=== PATIENT | male | born 1995 | race Caucasian/White ===

== ENCOUNTER 2018-01-05 12:21 | Emergency (ER) | payer OTHER ==
[2018-01-05 12:25] VITALS: TEMP 98.1; BMI 34.7
[2018-01-05] MEDS ORDERED: SODIUM CHLORIDE 0.9% 1000 ML INFUS.BAG IV ONE (13:02)
[2018-01-05] MEDS ORDERED: ONDANSETRON 4 MG/2 ML VIAL IVPUSH ONE (13:02)
--- NOTE | 2018-01-05 13:05 | PDOC ---
History of Present Illness - General Chief Complaint: Lightheaded Stated Complaint: DIZZINESS/NAUSEA Time Seen by Provider: 01/05/18 12:33 History Source: Patient Exam Limitations: No Limitations - History of Present Illness Initial Comments: 01/05/18 13:03 The patient is a 22M with no PMH who presents to the ER complaining of dizzines. The patient states that Tuesday evening (2 days ago) he began to experience a room spinning sensation that has been consistent and not gone away. The patient states that this sensation is associated with nausea but no vomiting, numbness, tingling, fever, chills, CP, SOB. He denies any family history of vertigo or sudden cardiac . The patient admits to tinnitis in his L ear and a "feeling of wind" in his R ear. Past History - Past Medical History Allergies/Adverse Reactions: Allergies Allergy/AdvReac Type Severity Reaction Status Date / Time No Known Allergies Allergy Verified 01/05/18 12:25 Home Medications: Ambulatory Orders Meclizine HCl [Antivert -] 25 mg PO QID #28 tablet 01/05/18 COPD: No - Suicide/Smoking/Psychosocial Hx Smoking History: Never smoked Information on smoking cessation initiated: No Hx Alcohol Use: No Drug/Substance Use Hx: No Substance Use Type: None Review of Systems - Review of Systems Able to Perform ROS?: Yes Comments:: 01/05/18 13:20 GENERAL/CONSTITUTIONAL: Positive for room spinning sensation. No fever or chills. No weakness. HEAD, EYES, EARS, NOSE AND THROAT: No change in vision. No ear pain or discharge. No sore throat. CARDIOVASCULAR: No chest pain, palpitations, or lightheadedness. RESPIRATORY: No cough, wheezing, shortness of breath, or hemoptysis. GASTROINTESTINAL: No nausea, vomiting, diarrhea, constipation, or abdominal pain. GENITOURINARY: No dysuria, frequency, hematuria, or change in urination. MUSCULOSKELETAL: No joint or muscle swelling or pain. No neck or back pain. SKIN: No rash or lesions. NEUROLOGIC: No headache, numbness, tingling, weakness, loss of consciousness, or change in strength/sensation. ENDOCRINE: No increased thirst. No abnormal weight change. HEMATOLOGIC/LYMPHATIC: No anemia, easy bleeding, or history of blood clots. ALLERGIC/IMMUNOLOGIC: No hives or skin allergy. Is the patient limited Kinyarwanda proficient: No *Physical Exam - Vital Signs Last Vital Signs Temp Pulse Resp BP Pulse Ox 98.1 F 88 18 148/77 98 01/05/18 12:23 01/05/18 12:23 01/05/18 12:23 01/05/18 12:23 01/05/18 12:23 - Physical Exam Comments: 01/05/18 13:20 GENERAL: Well developed, well nourished. Awake and alert. No acute distress. HEENT: Normocephalic, atraumatic. Hearing grossly normal. Moist mucous membranes. PERRLA, EOMI. No conjunctival pallor. Sclera are non-icteric. NECK: Supple. Full ROM. No JVD. CARDIOVASCULAR: Regular rate and rhythm. No murmurs, rubs, or gallops. PULMONARY: No evidence of respiratory distress. Lungs clear to auscultation bilaterally. No wheezing, rales or rhonchi. ABDOMINAL: Soft. Non-tender. Non-distended. No rebound or guarding. GENITOURINARY: No CVA tenderness bilaterally. MUSCULOSKELETAL: Normal range of motion at all joints. No bony deformities or tenderness. EXTREMITIES: No cyanosis. No clubbing. No edema. No calf tenderness. SKIN: Warm and dry. Normal capillary refill. No rashes. No jaundice. NEUROLOGICAL: Alert, awake, appropriate. Cranial nerves 2-12 intact. L persistent horizontal nystagmus. Normal speech. Gait is normal without ataxia. PSYCHIATRIC: Cooperative. Good eye contact. Appropriate mood and affect. ED Treatment Course - LABORATORY CBC & Chemistry Diagram: 01/05/18 13:20 01/05/18 13:20 Medical Decision Making - Medical Decision Making 01/05/18 13:23 The patient is a 22M with no PMH who presents with vertiginous dizziness. The dizziness is worsened with movement on PE. Will give fluid, zofran, and meclizine and reassess. 01/05/18 14:14 Pt states his nausea has subsided. Recently given meclizine, will reassess. 01/05/18 16:01 Pt states he feels better. Still feels the dizziness when he looks to his L. I have instructed the patient on the importance of f/u with PCP and ENT. *DC/Admit/Observation/Transfer Diagnosis at time of Disposition: Dizziness - Discharge Dispostion Disposition: HOME Condition at time of disposition: Stable Admit: No - Prescriptions Prescriptions: Meclizine HCl [Antivert -] 25 mg PO QID #28 tablet - Referrals Referrals: Holly Patino MD [Primary Care Provider] - Yasir Ochoa MD [Staff Physician] - - Patient Instructions Printed Discharge Instructions: DI for Vertigo Additional Instructions: Please return to the ER if you have any signs or symptoms of chest pain, shortness of breath, uncontrollable fever, chills, nausea, vomiting, numbness, tingling, or weakness in any part of your body, changes in vision, or slurred speech. Please follow up with your primary care physician, Dr. Patino, in 2-3 days. Please follow up with the Ear, Nose, and Throat doctor, Dr. Ochoa in 1-3 days. You can take Meclizine as prescribed and as needed for dizziness. Please return to the ER if symptoms persist, worsen, or new symptoms arise. - Post Discharge Activity
[2018-01-05] MEDS ORDERED: MECLIZINE HCL 25 MG TABLET (FP) PO ONE (13:09)
[2018-01-05] MEDS ORDERED: ONDANSETRON 4 MG/2 ML VIAL ONE (13:13)
--- NOTE | 2018-01-05 13:14 | PDOC ---
Attending Attestation - Resident Resident Name: Jean-PierrejoanndevinWiley - ED Attending Attestation I have performed the following: I have examined & evaluated the patient, The case was reviewed & discussed with the resident, I agree w/resident's findings & plan, Exceptions are as noted - HPI HPI: 01/05/18 13:15 22y M presents with complaint of 2 days of dizziness that is vertignios in nature, associated with nausea, tinnitus in L ear, vertigo seems worse with turning to the left. denies any f/cm neck pain,diplopia , dysarthria, numbness/tingling/weakness, vomiting. pts exam unremarkble normal finger to nose, rapid alternating movements strength symmetirc in upper/lower extermities normal nonataxic gait Will obtain blood work to rule her out anemia, metabolic derangements, will give meclizine and Zofran for symptomatically relief. Suspect peripheral vertigo - Medical Decision Making 01/05/18 16:31 The patient's blood work was reviewed it is unremarkable the patient is feeling improved. We'll discharge patient follow with PMD return precautions were discussed I discussed the physical exam findings, ancillary test results and final diagnoses with the patient. I answered all of the patient's questions. The patient was satisfied with the care received and felt comfortable with the discharge plan and treatment plan. The patient will call their primary care physician within 24 hours to arrange follow-up and will return to the Emergency Department with any new, persistent or worsening symptoms. Heart Score/ECG Review - ECG Impressions Comment:: 01/05/18 17:10 Twelve-lead EKG was performed and reviewed by me. There is normal sinus rhythm with a normal rate. rate of 76 The axis is normal. The intervals are normal. There is normal R wave progression There are no ST or T wave abnormalities. Impression: Normal twelve-lead EKG
[2018-01-05 13:53] LABS: BASO % 0.4 % (0-2.0); EOS % 0.4 % (0-4.5); HEMATOCRIT 44.9 % (35.4-49); HEMOGLOBIN 15.3 GM/dL (11.7-16.9); LYMPH % 16.9 % (8-40); MCH 29.8 pg (25.7-33.7); MEAN CELL VOLUME 87.5 fl (80-96); MONO % 5.3 % (3.8-10.2); PLATELET COUNT 193 K/MM3 (134-434); RBC 5.13 M/mm3 (4.00-5.60); RDW 12.9 % (11.9-15.9); WHITE BLOOD COUNT 7.6 K/mm3 (4.0-10.0)
[2018-01-05] MEDS ORDERED: MECLIZINE HCL 25 MG TABLET (FP) ONE (13:58)
[2018-01-05 14:18] LABS: ALBUMIN 4.2 g/dl (3.4-5.0); ANION GAP 8 (8-16); BLOOD UREA NITROGEN 18 mg/dL (7-18); CALCIUM 9.2 mg/dL (8.5-10.1); CHLORIDE 106 mmol/L (98-107); CO2 25 mmol/L (21-32); CREATININE 0.9 mg/dL (0.7-1.3); GLUCOSE,RANDOM 104 mg/dL (74-106); POTASSIUM 3.7 mmol/L (3.5-5.1); SGOT/AST 27 U/L (15-37); SGPT/ALT 63 U/L (12-78); SODIUM 139 mmol/L (136-145)
[2018-01-05 14:21] LABS: ALK PHOS 88 U/L (45-117); BILIRUBIN,TOTAL 0.4 mg/dL (0.2-1.0); TOT PROT 7.5 g/dl (6.4-8.2)
--- NOTE | 2018-01-05 14:49 | EKG ---
Test Reason : Blood Pressure : / mmHG Vent. Rate : 076 BPM Atrial Rate : 076 BPM P-R Int : 128 ms QRS Dur : 084 ms QT Int : 356 ms P-R-T Axes : 040 060 007 degrees QTc Int : 400 ms NORMAL SINUS RHYTHM WITH SINUS ARRHYTHMIA NORMAL ECG NO PREVIOUS ECGS AVAILABLE Confirmed by TACOS AMAYA MD ([id number]) on 01/05/2018 2:49:32 PM Referred By: Confirmed By:TACOS AMAYA MD
[2018-01-05 16:53] VITALS: BP 120/76; PULSE 86
== END 2018-01-05 16:52 | disposition home or self-care (01) ==
LOC: JER 12:21
PROC: 3E033GC Introduction of Other Therapeutic Substance into Peripheral Vein, Percutaneous Approach (ICD-10-PCS; principal; 2018-01-05)
DX: R42 Dizziness and giddiness (principal)
CPT/HCPCS: 36415; 80053; 85025; 93005; 93010; 99283-25; J7030